=== PATIENT | male | born 1965 | race African-American/Black ===

== ENCOUNTER 2018-03-31 13:50 | Emergency (ER) | payer OTHER ==
[2018-03-31] MEDS ORDERED: Morphine 4 MG/ML VIAL ONE (15:21)
[2018-03-31] MEDS ORDERED: Ondansetron PF 4 MG/2 ML Vial ONE (15:22)
--- NOTE | 2018-03-31 15:48 | ULT ---
ULTRASOUND TESTICULAR WITH DOPPLER: Date: 03/31/18 HISTORY: Pain. Injury. COMPARISON: None. TECHNIQUE: Real-time [place] scale with color Doppler and spectral analysis of the testicles performed. FINDINGS: Right testicle measures 3.5 x 2.7 x 4.0 cm. Left testicle measures 3.4 x 2.2 x 3.0 cm. Right epididym is is not seen. Left epididymis is normal. The skin overlying the right scrotum is markedly thicker than the left scrotal skin. Adequate vascular flow to both testicles. No mass. No evidence of hematoma within the testicles thems elves. IMPRESSION: Asymmetric skin thickening of the right scrotum may be sequelae of contusion. No underlying testicula r abnormality. POS: JORGE LUIS
[2018-03-31] MEDS ORDERED: Ketorolac Tromethamine 30 MG/ML VIAL ONE (16:39)
== END 2018-03-31 16:51 | disposition home or self-care (01) ==
LOC: ERS 13:50
DX: S39.011A Strain of muscle, fascia and tendon of abdomen, initial encounter (principal); N50.811 Right testicular pain; I10 Essential (primary) hypertension; Z71.6 Tobacco abuse counseling; F17.210 Nicotine dependence, cigarettes, uncomplicated; W17.89XA Other fall from one level to another, initial encounter
CPT/HCPCS: 76870; 93976; 96361; 96374; 96375; 99406; J1885; J2270; J2405

== ENCOUNTER 2018-04-29 08:07 | Outpatient (CLI) | payer OTHER ==
--- NOTE | 2018-04-29 11:00 | CT ---
CT PELVIS WITH AND WITHOUT CONTRAST: HISTORY: S39.013D, strain of right inguinal muscle. COMPARISON: None. FINDINGS: On the noncontrast examination, there is no nephroureterolithiasis or hydroureteronephrosis. No seco ndary evidence of a recently passed stone. No dilated loops of bowel in the pelvis. No free fluid within the pelvis. Moderate facet arthropathy of the lower lumbar spine. There are some linear calcifications in the right adductor longus tendon, as well as some abnormal ca lcifications within the myotendinous junction and muscle belly itself. The calcifications extend for a length of 8 cm distal to the right superior pubic ramus. There are enthesopathic changes of both superior pubic rami at the adductor musculature and tendon origins. There is some edema within the r ight adductor longus muscle. There is also some subtle medial thigh edema. IMPRESSION: Findings most suggestive of [id number] right-sided sports hernia. There is suggestion of a par tial tear of the right adductor longus/myotendinous junction with ossification along the proximal ten don, as well as within the myotendinous junction and within the body itself. There is some low-grade surrounding edema. MRI, sports hernia protocol, has a much higher sensitivity for evaluation of the se injuries. No high-grade rectus muscle injury is appreciated. POS: [facility]
[2018-04-29] MEDS ORDERED: ISOVUE-370 76%-LOCM 1 ML ONE (12:34)
== END 2018-04-29 08:08 | disposition home or self-care (01) ==
LOC: BICCT 08:07
PROVIDERS: ATTEND Nurse Practitioner Family
DX: S39.013D Strain of muscle, fascia and tendon of pelvis, subsequent encounter (principal); R60.0 Localized edema
CPT/HCPCS: 72194

== ENCOUNTER 2022-12-06 07:34 | Outpatient (CLI) | payer BC | END 2022-12-06 07:35 | disposition home or self-care (01) | LOC: BICMRI 07:34 | PROVIDERS: ATTEND Neurological Surgery | DX: M48.062 Spinal stenosis, lumbar region with neurogenic claudication (principal); R20.0 Anesthesia of skin; M47.814 Spondylosis without myelopathy or radiculopathy, thoracic region; M51.34 Other intervertebral disc degeneration, thoracic region; M47.816 Spondylosis without myelopathy or radiculopathy, lumbar region; M51.36 Other intervertebral disc degeneration, lumbar region; M51.37 Other intervertebral disc degeneration, lumbosacral region; M89.38 Hypertrophy of bone, other site | CPT/HCPCS: 72146; 72148 ==